=== PATIENT | female | born 1955 | race Caucasian/White ===

== ENCOUNTER 2016-12-06 19:34 | Emergency (ER) | payer OTHER ==
[2016-12-06 20:48] VITALS: TEMP 98.4; BMI 37.1
--- NOTE | 2016-12-06 20:59 | PDOC ---
History of Present Illness <Julio Jennings - Last Filed: 12/06/16 23:50> - General History Source: Patient Exam Limitations: No Limitations - History of Present Illness Initial Comments: 12/07/16 00:56 61 y/o F with a PMHx of Layo's disease, NIDDM, GERD presents to the ED with right lower extremity pain, redness, warmth and swelling for 2 weeks. Patient states that about 2.5 weeks ago she had fever, chills, abdominal pain and NVD at onset of hers ymptoms wich largely resolved aftera few days. The fever persisted for a few days and then she noticed her right lower leg to have some pain, redness, warmth and swelling. She states the symptoms resolved, but returned a few days ago. She went to urgent care who referred her to the ED. She denies blood clots in the past. She denies chest pain, SOB, cough, castro, orthopnea. PCP: Dr. Reuben Carvajal <Ashley Javier - Last Filed: 12/07/16 00:57> - General Chief Complaint: Edema Stated Complaint: PCP SENT/[facility] Time Seen by Provider: 12/06/16 20:14 Past History - Psycho/Social/Smoking Cessation Hx Smoking History: Never smoked Have you smoked in the past 12 months: No Information on smoking cessation initiated: No Hx Alcohol Use: No Drug/Substance Use Hx: No <Dalton Jenningsan - Last Filed: 12/06/16 23:50> <Ashley Javier - Last Filed: 12/07/16 00:57> - Past Medical History Allergies/Adverse Reactions: Allergies Allergy/AdvReac Type Severity Reaction Status Date / Time bacitracin Allergy Verified 12/06/16 20:46 Home Medications: Ambulatory Orders Cephalexin [Keflex] 500 mg PO QID #28 capsule 12/06/16 Review of Systems - Review of Systems Able to Perform ROS?: Yes Comments:: 12/07/16 00:57 CONSTITUTIONAL: (+) fever, chills No reported: Diaphoresis, Generalized Weakness, Malaise, Loss of Appetite HEENT: No reported: Rhinorrhea, Nasal Congestion, Throat Pain, Throat Swelling, Difficulty Swallowing, Mouth Swelling, Ear Pain, Eye Pain, Visual Changes CARDIOVASCULAR: (+) RLE swelling No reported: Chest Pain, Syncope, Palpitations, Irregular Heart Rate, Lightheadedness RESPIRATORY: No reported: Cough, Shortness of Breath, SOB with Exertion, Orthopnea, Wheezing , Stridor, Hemoptysis GASTROINTESTINAL: (+) abdominal pain, nausea, vomiting, diarrhea (resolved) No reported: Abdominal Distension, Constipation, Melena, Hematochezia GENITOURINARY: No reported: Dysuria, Frequency, Urgency, Hesitancy, Flank Pain, Genital Pain MUSCULOSKELETAL: No reported: Myalgia, Arthralgia, Joint Swelling, Back pain, Neck Pain SKIN: (+) redness, warmth and pain of RLE No reported: Rash, Itching, Pallor HEMATOLOGIC/IMMUNOLOGIC: No reported: Easy Bleeding, Easy Bruising, Lymphadenopathy, Frequent infections ENDOCRINE: No reported: Unexplained Weight Gain, Unexplained Weight Loss, Heat Intolerance , Cold Intolerance NEUROLOGIC: No reported: Headache, Focal Weakness, Paresthesias, Vertigo, Lightheadedness, Unsteady Gait, Seizure, Mental Status Changes, Incontinence PSYCHIATRIC: No reported: Anxiety, Depression <Ashley Javier - Last Filed: 12/07/16 00:57> *Physical Exam - Vital Signs Last Vital Signs Temp Pulse Resp BP Pulse Ox 98.4 F 85 18 129/70 97 12/06/16 20:46 12/06/16 20:46 12/06/16 20:46 12/06/16 20:46 12/06/16 20:46 <Julio Jennings - Last Filed: 12/06/16 23:50> - Vital Signs Last Vital Signs Temp Pulse Resp BP Pulse Ox 98.4 F 85 18 129/70 97 12/06/16 20:46 12/06/16 20:46 12/06/16 20:46 12/06/16 20:46 12/06/16 20:46 - Physical Exam Comments: 12/07/16 00:57 GENERAL: The patient is awake, alert, and fully oriented, Nontoxic - in no acute distress. HEAD: Normocephalic, atraumatic. EYES: extraocular movements intact, sclera anicteric, conjunctiva clear. ENT: Normal voice, Moist mucous membranes. NECK: Normal range of motion, supple LUNGS: Breath sounds equal, clear to auscultation bilaterally. No wheezes, no rhonchi, no rales. HEART: Regular rate and rhythm, without murmur, rub or gallop. ABDOMEN: Soft, nontender, normoactive bowel sounds. No guarding, no rebound.No CVA tenderness EXTREMITIES: erythema in LE with minimal tenderness, no warmth/streaking, neg homans sign. NEUROLOGICAL: No facial asymmetry, Normal speech PSYCH: Normal mood, normal affect. SKIN: Warm, Dry, normal turgor <Ashley Javier - Last Filed: 12/07/16 00:57> ED Treatment Course - LABORATORY CBC & Chemistry Diagram: 12/06/16 22:37 12/06/16 22:37 <MichaelaJulio - Last Filed: 12/06/16 23:50> - LABORATORY CBC & Chemistry Diagram: 12/06/16 22:37 12/06/16 22:37 - ADDITIONAL ORDERS Additional order review: Laboratory Results 12/06/16 22:37 Sodium 135 L Potassium 4.2 Chloride 98 Carbon Dioxide 26 Anion Gap 11 BUN 16 Creatinine 0.6 Creat Clearance w eGFR > 60 Random Glucose 155 H Calcium 9.6 Total Bilirubin 0.7 AST 39 H D ALT 59 D Alkaline Phosphatase 70 D Total Protein 7.9 Albumin 4.1 12/06/16 22:37 RBC 4.51 MCV 84.7 MCHC 34.2 RDW 13.6 D MPV 8.9 Neutrophils % 60.8 Lymphocytes % 23.1 Monocytes % 11.5 H Eosinophils % 3.6 Basophils % 1.0 - RADIOLOGY Radiograph Interpretation: 12/07/16 00:21 Duplex Vascular US - [address] Yonas Bird Impression: No DVT is identified involving the right leg. <Ashley Javier - Last Filed: 12/07/16 00:57> Medical Decision Making - Medical Decision Making 12/06/16 21:21 61y F hx dm2, hypothyroidism, presents with intermittent fevers a few weeks ago and last night to 102, also wit leg swelling and redness suspect cellulitis vs dvt will obtain blood work and DVT 12/06/16 23:50 labs reviewed no signs of dvt on US will give rx for keflex will have pt fu with dr. carvajal return precautions were discussed I discussed the physical exam findings, ancillary test results and final diagnoses with the patient. I answered all of the patient's questions. The patient was satisfied with the care received and felt comfortable with the discharge plan and treatment plan. The patient will call their primary care physician within 24 hours to arrange follow-up and will return to the Emergency Department with any new, persistent or worsening symptoms. A portion of this note was documented by scribe services under my direction. I have reviewed the details of the note, within reason, and agree with the documentation with the following case summary and management plan written by me 12/06/16 23:58 <Julio Jennings - Last Filed: 12/06/16 23:50> *DC/Admit/Observation/Transfer - Discharge Dispostion Admit: No <Julio Jennings - Last Filed: 12/06/16 23:50> - Attestations Scribe Attestion: 12/07/16 00:23 Documentation prepared by Ashley Javier, acting as medical imaging technician for Julio Jennings MD. <Ashley Javier - Last Filed: 12/07/16 00:57> Diagnosis at time of Disposition: Cellulitis Qualifiers: Site of cellulitis: extremity Site of cellulitis of extremity: lower extremity Laterality: left Qualified Code(s): L03.116 - Cellulitis of left lower limb - Prescriptions Prescriptions: Cephalexin [Keflex] 500 mg PO QID #28 capsule - Referrals Referrals: Reuben Carvajal MD [Primary Care Provider] - - Patient Instructions Printed Discharge Instructions: DI for Cellulitis -- Adult Additional Instructions: Return to the emergency department immediately with ANY new, persistent or worsening symptoms including worsening pain, fevers/chills, shortnes of breath or any other concerns. You MUST call and follow up with Dr. Carvajal in 3-4 days for further evaluation of your symptoms. Results were discussed with you. Please make sure your doctor reviews the results of your emergency evaluation.
[2016-12-06 22:52] LABS: EOSINOPHIL 3.6 % (0-4.5); MCH 28.9 pg (25.7-33.7); MCHC 34.2 g/dl (32.0-36.0); MEAN CELL VOLUME 84.7 fl (80-96); MEAN PLT VOLUME 8.9 fl (7.5-11.1); NEUTROPHILS 60.8 % (42.8-82.8); PLATELET COUNT 191 K/MM3 (134-434); RDW 13.6 % (11.6-15.6); WHITE BLOOD COUNT 6.4 K/mm3 (4.0-10.0)
[2016-12-06 23:24] LABS: ALBUMIN 4.1 g/dl (3.4-5.0); ANION GAP 11 (8-16); CALCIUM 9.6 mg/dL (8.5-10.1); CO2 26 mmol/L (21-32); GLUCOSE,RANDOM 155 mg/dL (74-106)
[2016-12-06 23:29] LABS: ALK PHOS 70 U/L (45-117); BILIRUBIN,TOTAL 0.7 mg/dL (0.2-1.0); CREATININE 0.6 mg/dL (0.55-1.02); SGOT/AST 39 U/L (15-37); SGPT/ALT 59 U/L (12-78); TOT PROT 7.9 g/dl (6.4-8.2)
[2016-12-06] MEDS ORDERED: CEFTRIAXONE 1 GM in DEXTROSE 5%-WATER - 50 ML IVPB ONE (23:58)
[2016-12-07] MEDS ORDERED: CEFTRIAXONE 50 ML ONE (00:33)
[2016-12-07 01:05] VITALS: BP 127/60; PULSE 68
== END 2016-12-07 01:05 | disposition home or self-care (01) ==
LOC: JER 19:34
DX: L03.115 Cellulitis of right lower limb (principal); E11.9 Type 2 diabetes mellitus without complications; Z79.84 Long term (current) use of oral hypoglycemic drugs; E03.9 Hypothyroidism, unspecified; K21.9 Gastro-esophageal reflux disease without esophagitis
CPT/HCPCS: 36415; 80053; 85025; 93971-TC; 99282-25

== ENCOUNTER 2016-12-27 12:33 | Inpatient (IN) | payer OTHER ==
--- NOTE | 2016-12-27 13:08 | PDOC ---
History of Present Illness - General Chief Complaint: Wound Stated Complaint: WOUND INFECTION Time Seen by Provider: 12/27/16 13:08 - History of Present Illness Initial Comments: 61 y/o F with a PMHx of Layo's disease, NIDDM, GERD presents to the ED with fevers, nausea, vomiting, right lower extremity pain, redness, warmth and swelling for one day. She noticed this redness and swelling yesterday shortly after she was feeling warm and experienced an episode of nausea and vomiting. She had a very similar presentation one month prior and was discharged with good resolution of her symptoms on 500 Keflex QID x 7 days. 12/27/16 13:55 Past History - Past Medical History Allergies/Adverse Reactions: Allergies Allergy/AdvReac Type Severity Reaction Status Date / Time bacitracin Allergy Verified 12/27/16 12:45 lactose AdvReac Verified 12/27/16 12:51 Home Medications: Ambulatory Orders Atenolol [Tenormin -] 25 mg PO DAILY 12/27/16 Famotidine [Pepcid -] 40 mg PO DAILY 12/27/16 Levothyroxine [Synthroid -] 150 mcg PO DAILY 12/27/16 Metformin HCl [Metformin HCl ER] 1,000 mg PO BID 12/27/16 Diabetes: Yes GI Disorders: Yes (GERD) Thyroid Disease: No (Hypothyroid) Other medical history: Hashimotothriditis - Immunization History Immunization Up to Date: Yes - Suicide/Smoking/Psychosocial Hx Smoking History: Never smoked Have you smoked in the past 12 months: No Information on smoking cessation initiated: No Hx Alcohol Use: No Drug/Substance Use Hx: No Substance Use Type: None Review of Systems - Review of Systems Constitutional: Yes: Chills, Fever, Loss of Appetite HEENTM: No: Blurred Vision, Double Vision Respiratory: No: Cough, SOB with Exertion, SOB at Rest Cardiac (ROS): No: Chest Pain, Lightheadedness ABD/GI: Yes: Nausea, Vomiting. No: Constipated, Diarrhea : No: Dysuria, Discharge Integumentary: Yes: Change in Color, Erythema, Lesions Neurological: No: Headache *Physical Exam - Vital Signs Last Vital Signs Temp Pulse Resp BP Pulse Ox 100.8 F H 97 H 15 150/75 99 12/27/16 12:47 12/27/16 12:47 12/27/16 12:47 12/27/16 12:47 12/27/16 12:47 - Physical Exam General Appearance: Yes: Nourished, Appropriately Dressed. No: Apparent Distress HEENT: positive: EOMI, AMNA, Normal ENT Inspection, Normal Voice Respiratory/Chest: positive: Lungs Clear, Normal Breath Sounds. negative: Chest Tender, Respiratory Distress, Accessory Muscle Use Cardiovascular: positive: Regular Rhythm, Regular Rate, S1, S2, Edema. negative : JVD, Murmur Gastrointestinal/Abdominal: positive: Normal Bowel Sounds, Flat, Soft. negative : Tender Extremity: positive: Normal Range of Motion, Erythema, Inflammation (RLE edema and inflammation with erythema from the calcaneous to 3 cms below thte tibial plateau.). negative: Normal Inspection Integumentary: positive: Dry, Warm, Erythema. negative: Normal Color (Per above ) Neurologic: positive: Fully Oriented, Alert, Normal Mood/Affect, Normal Response ED Treatment Course - LABORATORY CBC & Chemistry Diagram: 12/27/16 14:00 12/27/16 14:00 Medical Decision Making - Medical Decision Making 61 year old female with erythema and swelling of her right lower extremity concerning for cellulitis. Will get CBC, CMP, lactate, CXR, and give 500 NS. 12/27/16 14:17 Labs WNL. Called Braulio x3. 12/27/16 17:00 Braulio called back and will admit to hospitalist. 12/27/16 18:[address] Carlson and will admit the patient to Obs for cellulitis. *DC/Admit/Observation/Transfer Diagnosis at time of Disposition: Cellulitis - Discharge Dispostion Disposition: HOME Condition at time of disposition: Improved Admit: Yes - Referrals Referrals: Reuben Carvajal MD [Primary Care Provider] -
--- NOTE | 2016-12-27 13:19 | PDOC ---
Attending Attestation - Resident Resident Name: Ernesto Mendoza - HPI HPI: 12/31/16 00:44 Pt presents to the ED complaining of R lower extremity pain and swelling, and fevers. Prior history of cellulitis treated with outpatient antibiotics. Patinet is diabetic. - Physicial Exam PE: 12/31/16 00:45 Agree with resident's exam. RLE is erythematous and tender from the foot to the knee. - Medical Decision Making 12/31/16 00:46 Patient presents to the ED with apparent RLE cellulitis. History of DM. Given her fever, elevated WBC count and immunocompromise, I feel that the patient needs to be admitted for IV antibiotics. Will start antibiotics and admit to medicine.
[2016-12-27] MEDS ORDERED: SODIUM CHLORIDE 0.9% 1000 ML INFUS.BAG IV ONE (13:36)
[2016-12-27 14:15] LABS: BASOPHIL 0.3 % (0-2.0); EOSINOPHIL 0.2 % (0-4.5); MCH 28.4 pg (25.7-33.7); MCHC 33.6 g/dl (32.0-36.0); MEAN CELL VOLUME 84.4 fl (80-96); MEAN PLT VOLUME 8.7 fl (7.5-11.1); PLATELET COUNT 145 K/MM3 (134-434); WHITE BLOOD COUNT 5.8 K/mm3 (4.0-10.0)
[2016-12-27 14:32] LABS: ALBUMIN 3.7 g/dl (3.4-5.0); ANION GAP 11 (8-16); BILIRUBIN,TOTAL 0.9 mg/dL (0.2-1.0); CALCIUM 8.8 mg/dL (8.5-10.1); CO2 26 mmol/L (21-32); CREATININE 0.7 mg/dL (0.55-1.02); GLUCOSE,RANDOM 172 mg/dL (74-106); SGOT/AST 21 U/L (15-37); SGPT/ALT 35 U/L (12-78)
[2016-12-27 14:33] LABS: ALK PHOS 58 U/L (45-117); TOT PROT 7.1 g/dl (6.4-8.2)
[2016-12-27] MEDS ORDERED: AMPICILLIN NA/SULBACTAM NA 3 GM in SODIUM CHLORIDE 100 ML IVPB ONE (16:03)
--- NOTE | 2016-12-27 19:42 | HP ---
Admitting History and Physical - Primary Care Physician PCP: Talia Carlson - Admission History of Present Illness: 61 y/o F with a PMHx of Layo's disease, NIDDM, GERD presents to the ED with fevers, nausea, vomiting, right lower extremity pain, redness, warmth and swelling for one day. She noticed this redness and swelling yesterday shortly after she was feeling warm and experienced an episode of nausea and vomiting. had cellulitis recently and dc home on po keflex - Past Medical History Gastrointestinal: Yes: GERD Endocrine: Yes: Diabetes Mellitus, Other (hashimotos) - Smoking History Smoking history: Never smoked Have you smoked in the past 12 months: No - Alcohol/Substance Use Hx Alcohol Use: No Home Medications - Allergies Allergies/Adverse Reactions: Allergies Allergy/AdvReac Type Severity Reaction Status Date / Time bacitracin Allergy Verified 12/27/16 12:45 lactose AdvReac Verified 12/27/16 12:51 - Home Medications Home Medications: Ambulatory Orders Atenolol [Tenormin -] 25 mg PO DAILY 12/27/16 Famotidine [Pepcid -] 40 mg PO DAILY 12/27/16 Levothyroxine [Synthroid -] 150 mcg PO DAILY 12/27/16 Metformin HCl [Metformin HCl ER] 1,000 mg PO BID 12/27/16 Amox-Tr/K Cl [Augmentin 875-125mg Tablet -] 1 tab PO BID@0800,1730 #14 tablet Physical Examination Vital Signs: Vital Signs Temperature 100.8 F H 12/27/16 12:47 Pulse Rate 91 H 12/27/16 18:55 Respiratory Rate 18 12/27/16 18:55 Blood Pressure 142/70 12/27/16 18:55 O2 Sat by Pulse Oximetry (%) 98 12/27/16 18:55 Constitutional: Yes: No Distress HENT: Yes: Atraumatic Neck: Yes: Supple Cardiovascular: Yes: Regular Rate and Rhythm Respiratory: Yes: CTA Bilaterally Gastrointestinal: Yes: Normal Bowel Sounds Extremities: Yes: Other (cellulitis) Problem List - Problems (1) Cellulitis Assessment/Plan: iv abx bcx id consult Code(s): L03.90 - CELLULITIS, UNSPECIFIED (2) GERD (gastroesophageal reflux disease) Assessment/Plan: stable Code(s): K21.9 - GASTRO-ESOPHAGEAL REFLUX DISEASE WITHOUT ESOPHAGITIS (3) Hypothyroid Assessment/Plan: on meds stable Code(s): E03.9 - HYPOTHYROIDISM, UNSPECIFIED (4) Diabetes Assessment/Plan: on metformin check bgms Code(s): E11.9 - TYPE 2 DIABETES MELLITUS WITHOUT COMPLICATIONS Assessment/Plan Laboratory Tests 12/27/16 12/27/16 12/27/16 14:00 14:00 14:00 WBC 5.8 RBC 4.30 Hgb 12.2 Hct 36.3 MCV 84.4 MCH 28.4 MCHC 33.6 RDW 14.0 Plt Count 145 D MPV 8.7 Neutrophils % 75.0 D Lymphocytes % 15.6 D Monocytes % 8.9 Eosinophils % 0.2 D Basophils % 0.3 Sodium 135 L Potassium 3.5 Chloride 98 Carbon Dioxide 26 Anion Gap 11 BUN 10 D Creatinine 0.7 Creat Clearance w eGFR > 60 Random Glucose 172 H Lactic Acid 1.3 Calcium 8.8 Total Bilirubin 0.9 D AST 21 D ALT 35 D Alkaline Phosphatase 58 C-Reactive Protein Total Protein 7.1 Albumin 3.7 12/27/16 16:10 WBC RBC Hgb Hct MCV MCH MCHC RDW Plt Count MPV Neutrophils % Lymphocytes % Monocytes % Eosinophils % Basophils % Sodium Potassium Chloride Carbon Dioxide Anion Gap BUN Creatinine Creat Clearance w eGFR Random Glucose Lactic Acid Calcium Total Bilirubin AST ALT Alkaline Phosphatase C-Reactive Protein 11.1 H Total Protein Albumin Active Medications Generic Name Dose Route Start Last Admin Trade Name Freq PRN Reason Stop Dose Admin Acetaminophen 650 mg 12/27/16 19:46 Tylenol - PO Q6H PRN FEVER OR PAIN Amoxicillin/Clavulanate Potassium 1 tab 01/01/17 17:30 01/03/17 08:36 Augmentin - 875mg Tablet PO 1 tab BID@0800,1730 ZOEY Administration Atenolol 25 mg 12/28/16 10:00 01/03/17 10:49 Tenormin - PO 25 mg DAILY ZOEY Administration Levothyroxine Sodium 150 mcg 12/28/16 07:00 01/03/17 06:20 Synthroid - PO 150 mcg ACBK ZOEY Administration Metformin HCl 1,000 mg 12/29/16 07:00 01/03/17 06:20 Glucophage Xr - PO 1,000 mg BIDAC ZOEY Administration
[2016-12-27] MEDS ORDERED: ACETAMINOPHEN 325 MG TABLET (FP) PO PRN (19:46)
[2016-12-27 20:28] VITALS: BMI 35.2
[2016-12-27] MEDS: CEFTRIAXONE 1 GM in DEXTROSE 5%-WATER - 50 ML IVPB SCH (20:55)
[2016-12-27] MEDS: HEPARIN NA (PORCINE) 5,000 UNITS/ML 1ML VIAL SQ SCH (21:34)
[2016-12-27] MEDS ORDERED: PATIENT'S OWN MEDICATION (NON-FORMULARY) (Metformin Hcl [Metformin Hcl Er] 1,000 MG) PO SCH (22:00)
[2016-12-28] MEDS: LEVOTHYROXINE NA 150 MCG TABLET PO SCH (06:05)
[2016-12-28 08:19] LABS: MCH 28.4 pg (25.7-33.7); MCHC 33.4 g/dl (32.0-36.0); MEAN CELL VOLUME 85.1 fl (80-96)
[2016-12-28 08:36] LABS: BASOPHIL 0.5 % (0-2.0); EOSINOPHIL 2.8 % (0-4.5); MEAN PLT VOLUME 9.1 fl (7.5-11.1); PLATELET COUNT 152 K/MM3 (134-434); RDW 14.2 % (11.6-15.6); WHITE BLOOD COUNT 4.9 K/mm3 (4.0-10.0)
[2016-12-28 08:50] LABS: ALBUMIN 3.7 g/dl (3.4-5.0); ALK PHOS 64 U/L (45-117); ANION GAP 9 (8-16); BILIRUBIN,TOTAL 0.8 mg/dL (0.2-1.0); CALCIUM 8.7 mg/dL (8.5-10.1); CO2 29 mmol/L (21-32); CREATININE 0.7 mg/dL (0.55-1.02); GLUCOSE,RANDOM 135 mg/dL (74-106); SGOT/AST 25 U/L (15-37); SGPT/ALT 37 U/L (12-78); TOT PROT 7.2 g/dl (6.4-8.2)
--- NOTE | 2016-12-28 09:38 | EKG ---
Test Reason : Blood Pressure : / mmHG Vent. Rate : 093 BPM Atrial Rate : 093 BPM P-R Int : 160 ms QRS Dur : 082 ms QT Int : 366 ms P-R-T Axes : 027 -12 -06 degrees QTc Int : 455 ms NORMAL SINUS RHYTHM NONSPECIFIC ST AND T WAVE ABNORMALITY WHEN COMPARED WITH ECG OF 16-NOV-2012 12:41, T WAVE VARIATION Confirmed by MELI POWELL MD ([id number]) on 12/28/2016 9:37:59 AM Referred By: Confirmed By:MELI POWELL MD
[2016-12-28] MEDS ORDERED: CEFTRIAXONE 1 GM in DEXTROSE 5%-WATER - 50 ML IVPB SCH (10:00)
[2016-12-28] MEDS ORDERED: PT OWN MED DRAWER 7, Y5N ONE ×5 (11:01→21:33)
[2016-12-28] MEDS ORDERED: cefTRIAXone SODIUM 1 GM VIAL ONE (11:02)
[2016-12-28] MEDS ORDERED: DEXTROSE 5%-WATER - 50 ML IVPB ONE (11:02)
[2016-12-28] MEDS: HEPARIN NA (PORCINE) 5,000 UNITS/ML 1ML VIAL SQ SCH ×2 (11:04→22:00)
[2016-12-28] MEDS: ATENOLOL 25 MG TABLET (FP) PO SCH (11:04)
[2016-12-28] MEDS: CEFTRIAXONE 1 GM in DEXTROSE 5%-WATER - 50 ML IVPB SCH (11:06)
--- NOTE | 2016-12-28 13:18 | PN ---
Progress Note, Physician - Current Medication List Current Medications: Active Medications Acetaminophen (Tylenol -) 650 mg PO Q6H PRN PRN Reason: FEVER OR PAIN Atenolol (Tenormin -) 25 mg PO DAILY [facility] Last Admin: 12/28/16 11:04 Dose: 25 mg Heparin Sodium (Porcine) (Heparin -) 5,000 unit SQ BID [facility] Last Admin: 12/28/16 11:04 Dose: 5,000 unit Ceftriaxone Sodium 1 gm/ (Dextrose) 50 mls @ 100 mls/hr IVPB DAILY [facility] Last Admin: 12/28/16 11:06 Dose: 100 mls/hr Levothyroxine Sodium (Synthroid -) 150 mcg PO ACBK [facility] Last Admin: 12/28/16 06:05 Dose: 150 mcg Metformin HCl (Glucophage Xr -) 1,000 mg PO BID [facility] Last Admin: 12/28/16 11:05 Dose: 1,000 mg - Objective Vital Signs: Vital Signs Temperature 98.2 F 12/28/16 09:36 Pulse Rate 99 H 12/28/16 09:36 Respiratory Rate 16 12/28/16 09:36 Blood Pressure 126/63 12/28/16 09:36 O2 Sat by Pulse Oximetry (%) 98 12/27/16 23:11 Constitutional: Yes: No Distress HENT: Yes: Atraumatic Neck: Yes: Supple Cardiovascular: Yes: Regular Rate and Rhythm Respiratory: Yes: CTA Bilaterally Gastrointestinal: Yes: Normal Bowel Sounds Extremities: Yes: Other (cellulitis rlex) Neurological: Yes: Alert, Oriented Labs: CBC, BMP 12/28/16 06:45 12/28/16 06:44 Problem List - Problems (1) Cellulitis Assessment/Plan: on iv abx id consult Code(s): L03.90 - CELLULITIS, UNSPECIFIED (2) GERD (gastroesophageal reflux disease) Code(s): K21.9 - GASTRO-ESOPHAGEAL REFLUX DISEASE WITHOUT ESOPHAGITIS
--- NOTE | 2016-12-28 14:42 | CON.ID ---
Consult Consult Specialty:: infectious disease Referred by:: luis manuel Reason for Consultation:: cellulitis rt leg - History of Present Illness Chief Complaint: swelling and redness of the rt leg History of Present Illness: 61 y/o F with a PMHx of Layo's disease, NIDDM, GERD admitted with fevers, nausea, vomiting, right lower extremity pain, redness, warmth and swelling for one day. She noticed this redness and swelling yesterday shortly after she was feeling warm and experienced an episode of nausea and vomiting. She had a very similar presentation one month prior and was discharged with good resolution of her symptoms on 500 Keflex QID x 7 days. patient mentions that the swelling has come on suddenly - History Source History Provided By: Patient Limitations to Obtaining History: No Limitations - Past Medical History Gastrointestinal: Yes: GERD ...LMP: 01/06/07 Endocrine: Yes: Diabetes Mellitus, Other (hashimotos) - Alcohol/Substance Use Hx Alcohol Use: No - Smoking History Smoking history: Never smoked Have you smoked in the past 12 months: No Home Medications - Allergies Allergies/Adverse Reactions: Allergies Allergy/AdvReac Type Severity Reaction Status Date / Time bacitracin Allergy Verified 12/27/16 12:45 lactose AdvReac Verified 12/27/16 12:51 - Home Medications Home Medications: Ambulatory Orders Atenolol [Tenormin -] 25 mg PO DAILY 12/27/16 Famotidine [Pepcid -] 40 mg PO DAILY 12/27/16 Levothyroxine [Synthroid -] 150 mcg PO DAILY 12/27/16 Metformin HCl [Metformin HCl ER] 1,000 mg PO BID 12/27/16 Review of Systems - Review of Systems Constitutional: reports: Fever Eyes: reports: No Symptoms HENT: reports: No Symptoms Neck: reports: No Symptoms Cardiovascular: reports: No Symptoms Respiratory: reports: No Symptoms Gastrointestinal: reports: No Symptoms Genitourinary: reports: No Symptoms Musculoskeletal: reports: Muscle Pain, Other Integumentary: reports: Change in Color, Erythema Neurological: reports: No Symptoms Endocrine: reports: No Symptoms Hematology/Lymphatic: reports: No Symptoms Psychiatric: reports: No Symptoms Physical Exam Vital Signs: Vital Signs Temperature 98.8 F 12/28/16 14:30 Pulse Rate 75 12/28/16 14:30 Respiratory Rate 16 12/28/16 09:36 Blood Pressure 121/72 12/28/16 14:30 O2 Sat by Pulse Oximetry (%) 98 12/27/16 23:11 Constitutional: Yes: No Distress, Calm, Obese Eyes: Yes: Conjunctiva Clear HENT: Yes: Atraumatic Neck: Yes: Supple, Trachea Midline Cardiovascular: Yes: Regular Rate and Rhythm Respiratory: Yes: Regular, CTA Bilaterally Gastrointestinal: Yes: Normal Bowel Sounds, Soft Musculoskeletal: Yes: Other Extremities: Yes: Erythema Edema: RLE: 1+ Integumentary: Yes: Erythema, Other Neurological: Yes: Alert, Oriented Psychiatric: Yes: Alert Labs: CBC, BMP 12/28/16 06:45 12/28/16 06:44 Imaging - Results Chest X-ray: Report Reviewed, Image Reviewed X-ray: Report Reviewed, Image Reviewed Assessment/Plan Problem List - Problems (1) Cellulitis Code(s): L03.90 - CELLULITIS, UNSPECIFIED (2) GERD (gastroesophageal reflux disease) Code(s): K21.9 - GASTRO-ESOPHAGEAL REFLUX DISEASE WITHOUT ESOPHAGITIS 3 obesity 4 swelling of the rt leg plan elevation of the leg iv abx rest as per primary team
[2016-12-28] MEDS ORDERED: AMPICILLIN NA/SULBACTAM NA 3 GM in SODIUM CHLORIDE 100 ML IVPB SCH (14:45)
[2016-12-28] MEDS: AMPICILLIN NA/SULBACTAM NA 3 GM in SODIUM CHLORIDE 100 ML IVPB SCH ×2 (16:39→18:15)
[2016-12-29] MEDS ORDERED: PT OWN MED DRAWER 7, Y5N ONE ×4 (01:40→17:07)
[2016-12-29] MEDS: AMPICILLIN NA/SULBACTAM NA 3 GM in SODIUM CHLORIDE 100 ML IVPB SCH ×3 (01:44→17:10)
[2016-12-29] MEDS: LEVOTHYROXINE NA 150 MCG TABLET PO SCH (06:41)
[2016-12-29] MEDS ORDERED: cefTRIAXone SODIUM 1 GM VIAL ONE (10:00)
[2016-12-29] MEDS ORDERED: DEXTROSE 5%-WATER - 50 ML IVPB ONE (10:01)
[2016-12-29] MEDS: ATENOLOL 25 MG TABLET (FP) PO SCH (10:04)
[2016-12-29] MEDS: HEPARIN NA (PORCINE) 5,000 UNITS/ML 1ML VIAL SQ SCH ×2 (10:04→21:15)
[2016-12-29] MEDS: CEFTRIAXONE 1 GM in DEXTROSE 5%-WATER - 50 ML IVPB SCH (11:06)
--- NOTE | 2016-12-29 16:34 | PN ---
Progress Note, Physician History of Present Illness: patient leg still red improving - Current Medication List Current Medications: Active Medications Acetaminophen (Tylenol -) 650 mg PO Q6H PRN PRN Reason: FEVER OR PAIN Atenolol (Tenormin -) 25 mg PO DAILY [facility] Last Admin: 12/29/16 10:04 Dose: 25 mg Heparin Sodium (Porcine) (Heparin -) 5,000 unit SQ BID [facility] Last Admin: 12/29/16 10:04 Dose: 5,000 unit Ceftriaxone Sodium 1 gm/ (Dextrose) 50 mls @ 100 mls/hr IVPB DAILY [facility] Last Admin: 12/29/16 11:06 Dose: 100 mls/hr Ampicillin Sodium/Sulbactam (Sodium 3 gm/ Sodium Chloride) 100 mls @ 200 mls/ hr IVPB Q8H-IV [facility] Last Admin: 12/29/16 10:02 Dose: 200 mls/hr Levothyroxine Sodium (Synthroid -) 150 mcg PO ACBK [facility] Last Admin: 12/29/16 06:41 Dose: 150 mcg Metformin HCl (Glucophage Xr -) 1,000 mg PO BIDAC [facility] Last Admin: 12/29/16 06:40 Dose: 1,000 mg - Objective Vital Signs: Vital Signs Temperature 98.3 F 12/29/16 14:28 Pulse Rate 73 12/29/16 14:28 Respiratory Rate 18 12/29/16 14:28 Blood Pressure 133/74 12/29/16 14:28 O2 Sat by Pulse Oximetry (%) 97 12/29/16 09:00 Constitutional: Yes: No Distress, Calm, Obese Neck: Yes: Supple, Trachea Midline Cardiovascular: Yes: Regular Rate and Rhythm Respiratory: Yes: Regular, CTA Bilaterally Gastrointestinal: Yes: Normal Bowel Sounds, Soft Musculoskeletal: Yes: Other Extremities: Yes: Erythema, Other Edema: LLE: 2+, RLE: 1+ Integumentary: Yes: Erythema Neurological: Yes: Alert, Oriented Psychiatric: Yes: Alert, Oriented Labs: CBC, BMP 12/28/16 06:45 12/28/16 06:44 Assessment/Plan Problem List - Problems (1) Cellulitis Code(s): L03.90 - CELLULITIS, UNSPECIFIED (2) GERD (gastroesophageal reflux disease) Code(s): K21.9 - GASTRO-ESOPHAGEAL REFLUX DISEASE WITHOUT ESOPHAGITIS 3 obesity 4 swelling of the rt leg plan elevation of the leg iv abx rest as per primary team
--- NOTE | 2016-12-29 18:08 | PN ---
Progress Note, Physician History of Present Illness: feeling good - Current Medication List Current Medications: Active Medications Acetaminophen (Tylenol -) 650 mg PO Q6H PRN PRN Reason: FEVER OR PAIN Atenolol (Tenormin -) 25 mg PO DAILY [facility] Last Admin: 12/29/16 10:04 Dose: 25 mg Heparin Sodium (Porcine) (Heparin -) 5,000 unit SQ BID [facility] Last Admin: 12/29/16 10:04 Dose: 5,000 unit Ceftriaxone Sodium 1 gm/ (Dextrose) 50 mls @ 100 mls/hr IVPB DAILY [facility] Last Admin: 12/29/16 11:06 Dose: 100 mls/hr Ampicillin Sodium/Sulbactam (Sodium 3 gm/ Sodium Chloride) 100 mls @ 200 mls/ hr IVPB Q8H-IV [facility] Last Admin: 12/29/16 17:10 Dose: 200 mls/hr Levothyroxine Sodium (Synthroid -) 150 mcg PO ACBK [facility] Last Admin: 12/29/16 06:41 Dose: 150 mcg Metformin HCl (Glucophage Xr -) 1,000 mg PO BIDAC [facility] Last Admin: 12/29/16 17:50 Dose: 1,000 mg - Objective Vital Signs: Vital Signs Temperature 98.3 F 12/29/16 14:28 Pulse Rate 73 12/29/16 14:28 Respiratory Rate 18 12/29/16 14:28 Blood Pressure 133/74 12/29/16 14:28 O2 Sat by Pulse Oximetry (%) 97 12/29/16 09:00 Constitutional: Yes: No Distress HENT: Yes: Atraumatic Neck: Yes: Supple Cardiovascular: Yes: Regular Rate and Rhythm Respiratory: Yes: CTA Bilaterally Gastrointestinal: Yes: Normal Bowel Sounds Extremities: Yes: Other (R phyllis warm and red) Edema: RLE: 1+ Neurological: Yes: Alert, Oriented Labs: CBC, BMP 12/28/16 06:45 12/28/16 06:44 Problem List - Problems (1) Cellulitis Assessment/Plan: on iv abx elevate leg id consult Code(s): L03.90 - CELLULITIS, UNSPECIFIED (2) GERD (gastroesophageal reflux disease) Code(s): K21.9 - GASTRO-ESOPHAGEAL REFLUX DISEASE WITHOUT ESOPHAGITIS (3) Hypothyroid Assessment/Plan: on meds stable Code(s): E03.9 - HYPOTHYROIDISM, UNSPECIFIED
[2016-12-30] MEDS: AMPICILLIN NA/SULBACTAM NA 3 GM in SODIUM CHLORIDE 100 ML IVPB SCH ×3 (02:01→17:37)
[2016-12-30] MEDS: LEVOTHYROXINE NA 150 MCG TABLET PO SCH (06:47)
[2016-12-30] MEDS ORDERED: PT OWN MED DRAWER 7, Y5N ONE ×3 (10:42→17:03)
[2016-12-30] MEDS ORDERED: DEXTROSE 5%-WATER - 50 ML IVPB ONE (10:42)
[2016-12-30] MEDS ORDERED: cefTRIAXone SODIUM 1 GM VIAL ONE (10:42)
[2016-12-30] MEDS: HEPARIN NA (PORCINE) 5,000 UNITS/ML 1ML VIAL SQ SCH ×2 (10:43→21:34)
[2016-12-30] MEDS: ATENOLOL 25 MG TABLET (FP) PO SCH (10:44)
[2016-12-30] MEDS: CEFTRIAXONE 1 GM in DEXTROSE 5%-WATER - 50 ML IVPB SCH (10:44)
--- NOTE | 2016-12-30 14:37 | PN ---
Progress Note, Physician History of Present Illness: improving still red and swollen - Current Medication List Current Medications: Active Medications Acetaminophen (Tylenol -) 650 mg PO Q6H PRN PRN Reason: FEVER OR PAIN Atenolol (Tenormin -) 25 mg PO DAILY [facility] Last Admin: 12/30/16 10:44 Dose: 25 mg Heparin Sodium (Porcine) (Heparin -) 5,000 unit SQ BID [facility] Last Admin: 12/30/16 10:43 Dose: 5,000 unit Ceftriaxone Sodium 1 gm/ (Dextrose) 50 mls @ 100 mls/hr IVPB DAILY [facility] Last Admin: 12/30/16 10:44 Dose: 100 mls/hr Ampicillin Sodium/Sulbactam (Sodium 3 gm/ Sodium Chloride) 100 mls @ 200 mls/ hr IVPB Q8H-IV [facility] Last Admin: 12/30/16 10:42 Dose: 200 mls/hr Levothyroxine Sodium (Synthroid -) 150 mcg PO ACBK [facility] Last Admin: 12/30/16 06:47 Dose: 150 mcg Metformin HCl (Glucophage Xr -) 1,000 mg PO BIDAC [facility] Last Admin: 12/30/16 06:47 Dose: 1,000 mg - Objective Vital Signs: Vital Signs Temperature 98.1 F 12/30/16 09:00 Pulse Rate 79 12/30/16 09:00 Respiratory Rate 16 12/30/16 09:00 Blood Pressure 133/73 12/30/16 09:00 O2 Sat by Pulse Oximetry (%) 97 12/29/16 21:00 Constitutional: Yes: No Distress, Calm Cardiovascular: Yes: Regular Rate and Rhythm Respiratory: Yes: Regular, CTA Bilaterally Gastrointestinal: Yes: Normal Bowel Sounds, Soft Musculoskeletal: Yes: WNL Extremities: Yes: Erythema, Other (swelling) Integumentary: Yes: Erythema Neurological: Yes: Alert, Oriented Psychiatric: Yes: Alert, Oriented Labs: CBC, BMP 12/28/16 06:45 12/28/16 06:44 Assessment/Plan Problem List - Problems (1) Cellulitis Code(s): L03.90 - CELLULITIS, UNSPECIFIED (2) GERD (gastroesophageal reflux disease) Code(s): K21.9 - GASTRO-ESOPHAGEAL REFLUX DISEASE WITHOUT ESOPHAGITIS 3 obesity 4 swelling of the rt leg plan elevation of the leg iv abx rest as per primary team
--- NOTE | 2016-12-30 17:59 | PN ---
Progress Note, Physician History of Present Illness: feeling good - Current Medication List Current Medications: Active Medications Acetaminophen (Tylenol -) 650 mg PO Q6H PRN PRN Reason: FEVER OR PAIN Atenolol (Tenormin -) 25 mg PO DAILY [facility] Last Admin: 12/30/16 10:44 Dose: 25 mg Heparin Sodium (Porcine) (Heparin -) 5,000 unit SQ BID [facility] Last Admin: 12/30/16 10:43 Dose: 5,000 unit Ampicillin Sodium/Sulbactam (Sodium 3 gm/ Sodium Chloride) 100 mls @ 200 mls/ hr IVPB Q8H-IV [facility] Last Admin: 12/30/16 17:37 Dose: 200 mls/hr Levothyroxine Sodium (Synthroid -) 150 mcg PO ACBK [facility] Last Admin: 12/30/16 06:47 Dose: 150 mcg Metformin HCl (Glucophage Xr -) 1,000 mg PO BIDAC [facility] Last Admin: 12/30/16 17:36 Dose: 1,000 mg - Objective Vital Signs: Vital Signs Temperature 98.1 F 12/30/16 14:14 Pulse Rate 70 12/30/16 14:14 Respiratory Rate 22 12/30/16 14:14 Blood Pressure 130/72 12/30/16 14:14 O2 Sat by Pulse Oximetry (%) 97 12/30/16 09:00 Constitutional: Yes: No Distress HENT: Yes: Atraumatic Neck: Yes: Supple Cardiovascular: Yes: Regular Rate and Rhythm Respiratory: Yes: CTA Bilaterally Extremities: Yes: Other (rlex still warm and red) Neurological: Yes: Alert, Oriented Labs: CBC, BMP 12/28/16 06:45 12/28/16 06:44 Problem List - Problems (1) Cellulitis Assessment/Plan: on iv abx elevate leg id consult Code(s): L03.90 - CELLULITIS, UNSPECIFIED (2) GERD (gastroesophageal reflux disease) Code(s): K21.9 - GASTRO-ESOPHAGEAL REFLUX DISEASE WITHOUT ESOPHAGITIS (3) Hypothyroid Assessment/Plan: on meds stable Code(s): E03.9 - HYPOTHYROIDISM, UNSPECIFIED
[2016-12-31] MEDS: AMPICILLIN NA/SULBACTAM NA 3 GM in SODIUM CHLORIDE 100 ML IVPB SCH ×3 (01:34→17:44)
[2016-12-31] MEDS: LEVOTHYROXINE NA 150 MCG TABLET PO SCH (06:22)
[2016-12-31] MEDS ORDERED: PT OWN MED DRAWER 7, Y5N ONE ×2 (09:20→17:38)
[2016-12-31] MEDS: HEPARIN NA (PORCINE) 5,000 UNITS/ML 1ML VIAL SQ SCH ×2 (10:34→21:35)
[2016-12-31] MEDS: ATENOLOL 25 MG TABLET (FP) PO SCH (10:34)
--- NOTE | 2016-12-31 16:01 | PN ---
Progress Note, Physician History of Present Illness: doing much better no issues erythema resolving swelling much better - Current Medication List Current Medications: Active Medications Acetaminophen (Tylenol -) 650 mg PO Q6H PRN PRN Reason: FEVER OR PAIN Atenolol (Tenormin -) 25 mg PO DAILY [facility] Last Admin: 12/31/16 10:34 Dose: 25 mg Heparin Sodium (Porcine) (Heparin -) 5,000 unit SQ BID [facility] Last Admin: 12/31/16 10:34 Dose: 5,000 unit Ampicillin Sodium/Sulbactam (Sodium 3 gm/ Sodium Chloride) 100 mls @ 200 mls/ hr IVPB Q8H-IV [facility] Last Admin: 12/31/16 10:34 Dose: 200 mls/hr Levothyroxine Sodium (Synthroid -) 150 mcg PO ACBK [facility] Last Admin: 12/31/16 06:22 Dose: 150 mcg Metformin HCl (Glucophage Xr -) 1,000 mg PO BIDAC [facility] Last Admin: 12/31/16 08:46 Dose: 1,000 mg - Objective Vital Signs: Vital Signs Temperature 98.5 F 12/31/16 14:39 Pulse Rate 68 12/31/16 14:39 Respiratory Rate 22 12/31/16 14:39 Blood Pressure 141/85 12/31/16 14:39 O2 Sat by Pulse Oximetry (%) 97 12/30/16 21:00 Constitutional: Yes: No Distress, Calm Cardiovascular: Yes: Regular Rate and Rhythm Respiratory: Yes: Regular, CTA Bilaterally Gastrointestinal: Yes: Normal Bowel Sounds, Soft Musculoskeletal: Yes: Other Extremities: Yes: Erythema (better), Other Neurological: Yes: Alert, Oriented Psychiatric: Yes: Alert Labs: CBC, BMP 12/28/16 06:45 12/28/16 06:44 Assessment/Plan Problem List - Problems (1) Cellulitis Code(s): L03.90 - CELLULITIS, UNSPECIFIED (2) GERD (gastroesophageal reflux disease) Code(s): K21.9 - GASTRO-ESOPHAGEAL REFLUX DISEASE WITHOUT ESOPHAGITIS 3 obesity 4 swelling of the rt leg plan elevation of the leg iv abx rest as per primary team improving
--- NOTE | 2016-12-31 17:42 | PN ---
Progress Note, Physician History of Present Illness: feeling good - Current Medication List Current Medications: Active Medications Acetaminophen (Tylenol -) 650 mg PO Q6H PRN PRN Reason: FEVER OR PAIN Atenolol (Tenormin -) 25 mg PO DAILY [facility] Last Admin: 12/31/16 10:34 Dose: 25 mg Heparin Sodium (Porcine) (Heparin -) 5,000 unit SQ BID [facility] Last Admin: 12/31/16 10:34 Dose: 5,000 unit Ampicillin Sodium/Sulbactam (Sodium 3 gm/ Sodium Chloride) 100 mls @ 200 mls/ hr IVPB Q8H-IV [facility] Last Admin: 12/31/16 10:34 Dose: 200 mls/hr Levothyroxine Sodium (Synthroid -) 150 mcg PO ACBK [facility] Last Admin: 12/31/16 06:22 Dose: 150 mcg Metformin HCl (Glucophage Xr -) 1,000 mg PO BIDAC [facility] Last Admin: 12/31/16 08:46 Dose: 1,000 mg - Objective Vital Signs: Vital Signs Temperature 98.5 F 12/31/16 14:39 Pulse Rate 68 12/31/16 14:39 Respiratory Rate 22 12/31/16 14:39 Blood Pressure 141/85 12/31/16 14:39 O2 Sat by Pulse Oximetry (%) 97 12/31/16 09:00 Constitutional: Yes: No Distress HENT: Yes: Atraumatic Neck: Yes: Supple Cardiovascular: Yes: Regular Rate and Rhythm Respiratory: Yes: CTA Bilaterally Gastrointestinal: Yes: Normal Bowel Sounds Extremities: Yes: Other (rlex not warm...redness resolving) Edema: Yes Edema: RLE: 1+ Peripheral Pulses WNL: Yes Neurological: Yes: Alert, Oriented Labs: CBC, BMP 12/28/16 06:45 12/28/16 06:44 Problem List - Problems (1) Cellulitis Assessment/Plan: on iv abx elevate leg id consult Code(s): L03.90 - CELLULITIS, UNSPECIFIED (2) GERD (gastroesophageal reflux disease) Code(s): K21.9 - GASTRO-ESOPHAGEAL REFLUX DISEASE WITHOUT ESOPHAGITIS (3) Hypothyroid Assessment/Plan: on meds stable Code(s): E03.9 - HYPOTHYROIDISM, UNSPECIFIED
[2017-01-01] MEDS: AMPICILLIN NA/SULBACTAM NA 3 GM in SODIUM CHLORIDE 100 ML IVPB SCH ×2 (02:47→10:05)
[2017-01-01] MEDS ORDERED: PT OWN MED DRAWER 7, Y5N ONE ×3 (06:22→16:50)
[2017-01-01] MEDS: LEVOTHYROXINE NA 150 MCG TABLET PO SCH (06:36)
[2017-01-01] MEDS: ATENOLOL 25 MG TABLET (FP) PO SCH (10:06)
[2017-01-01] MEDS: HEPARIN NA (PORCINE) 5,000 UNITS/ML 1ML VIAL SQ SCH ×2 (10:06→21:46)
--- NOTE | 2017-01-01 13:51 | PN ---
Progress Note, Physician History of Present Illness: improving still with erythema - Current Medication List Current Medications: Active Medications Acetaminophen (Tylenol -) 650 mg PO Q6H PRN PRN Reason: FEVER OR PAIN Atenolol (Tenormin -) 25 mg PO DAILY [facility] Last Admin: 01/01/17 10:06 Dose: 25 mg Heparin Sodium (Porcine) (Heparin -) 5,000 unit SQ BID [facility] Last Admin: 01/01/17 10:06 Dose: 5,000 unit Ampicillin Sodium/Sulbactam (Sodium 3 gm/ Sodium Chloride) 100 mls @ 200 mls/ hr IVPB Q8H-IV [facility] Last Admin: 01/01/17 10:05 Dose: 200 mls/hr Levothyroxine Sodium (Synthroid -) 150 mcg PO ACBK [facility] Last Admin: 01/01/17 06:36 Dose: 150 mcg Metformin HCl (Glucophage Xr -) 1,000 mg PO BIDAC [facility] Last Admin: 01/01/17 08:40 Dose: 1,000 mg - Objective Vital Signs: Vital Signs Temperature 99 F 01/01/17 09:16 Pulse Rate 72 01/01/17 09:16 Respiratory Rate 20 01/01/17 09:16 Blood Pressure 142/72 01/01/17 09:16 O2 Sat by Pulse Oximetry (%) 95 01/01/17 09:00 Constitutional: Yes: No Distress, Calm, Obese Cardiovascular: Yes: Regular Rate and Rhythm Respiratory: Yes: Regular, CTA Bilaterally Gastrointestinal: Yes: Normal Bowel Sounds, Soft Musculoskeletal: Yes: Other Extremities: Yes: Erythema (better) Integumentary: Yes: Erythema Neurological: Yes: Alert, Oriented Psychiatric: Yes: Alert, Oriented Labs: CBC, BMP 12/28/16 06:45 12/28/16 06:44 Assessment/Plan Problem List - Problems (1) Cellulitis Code(s): L03.90 - CELLULITIS, UNSPECIFIED (2) GERD (gastroesophageal reflux disease) Code(s): K21.9 - GASTRO-ESOPHAGEAL REFLUX DISEASE WITHOUT ESOPHAGITIS 3 obesity 4 swelling of the rt leg plan elevation of the leg iv abx hopefully by tuesday can switch to oral abx
--- NOTE | 2017-01-01 16:50 | PN ---
Progress Note, Physician History of Present Illness: doing well - Current Medication List Current Medications: Active Medications Acetaminophen (Tylenol -) 650 mg PO Q6H PRN PRN Reason: FEVER OR PAIN Amoxicillin/Clavulanate Potassium (Augmentin - 875mg Tablet) 1 tab PO BID@0800, 1730 [facility] Atenolol (Tenormin -) 25 mg PO DAILY [facility] Last Admin: 01/01/17 10:06 Dose: 25 mg Heparin Sodium (Porcine) (Heparin -) 5,000 unit SQ BID [facility] Last Admin: 01/01/17 10:06 Dose: 5,000 unit Levothyroxine Sodium (Synthroid -) 150 mcg PO ACBK [facility] Last Admin: 01/01/17 06:36 Dose: 150 mcg Metformin HCl (Glucophage Xr -) 1,000 mg PO BIDAC [facility] Last Admin: 01/01/17 08:40 Dose: 1,000 mg - Objective Vital Signs: Vital Signs Temperature 98.9 F 01/01/17 16:09 Pulse Rate 67 01/01/17 16:09 Respiratory Rate 16 01/01/17 16:09 Blood Pressure 131/74 01/01/17 16:09 O2 Sat by Pulse Oximetry (%) 95 01/01/17 09:00 Constitutional: Yes: No Distress HENT: Yes: Atraumatic Neck: Yes: Supple Cardiovascular: Yes: Regular Rate and Rhythm Respiratory: Yes: CTA Bilaterally Gastrointestinal: Yes: Normal Bowel Sounds Extremities: Yes: Other (rlex much improved) Neurological: Yes: Alert, Oriented Labs: CBC, BMP 12/28/16 06:45 12/28/16 06:44 Problem List - Problems (1) Cellulitis Assessment/Plan: will switch to po elevate leg id consult Code(s): L03.90 - CELLULITIS, UNSPECIFIED (2) GERD (gastroesophageal reflux disease) Code(s): K21.9 - GASTRO-ESOPHAGEAL REFLUX DISEASE WITHOUT ESOPHAGITIS (3) Hypothyroid Assessment/Plan: on meds stable Code(s): E03.9 - HYPOTHYROIDISM, UNSPECIFIED Assessment/Plan
[2017-01-01] MEDS: AMOX TR/POT CLAV 875MG/125MG TABLETS (FP) PO SCH (17:18)
[2017-01-01 17:26] LABS: BASOPHIL 0.4 % (0-2.0); EOSINOPHIL 5.6 % (0-4.5); MCH 28.3 pg (25.7-33.7); MCHC 33.4 g/dl (32.0-36.0); MEAN CELL VOLUME 84.6 fl (80-96); MEAN PLT VOLUME 8.6 fl (7.5-11.1); NEUTROPHILS 58.9 % (42.8-82.8); PLATELET COUNT 218 K/MM3 (134-434); RDW 13.8 % (11.6-15.6); WHITE BLOOD COUNT 5.9 K/mm3 (4.0-10.0)
[2017-01-01 17:46] LABS: ALBUMIN 3.7 g/dl (3.4-5.0); ANION GAP 8 (8-16); BILIRUBIN,TOTAL 0.3 mg/dL (0.2-1.0); CALCIUM 9.2 mg/dL (8.5-10.1); CO2 30 mmol/L (21-32); CREATININE 0.7 mg/dL (0.55-1.02); GLUCOSE,RANDOM 86 mg/dL (74-106); SGOT/AST 40 U/L (15-37); SGPT/ALT 45 U/L (12-78); TOT PROT 7.6 g/dl (6.4-8.2)
[2017-01-01 17:47] LABS: ALK PHOS 62 U/L (45-117)
[2017-01-02] MEDS ORDERED: PT OWN MED DRAWER 7, Y5N ONE ×2 (06:02→17:48)
[2017-01-02] MEDS: LEVOTHYROXINE NA 150 MCG TABLET PO SCH (06:34)
[2017-01-02] MEDS: AMOX TR/POT CLAV 875MG/125MG TABLETS (FP) PO SCH ×2 (08:35→17:58)
[2017-01-02] MEDS: ATENOLOL 25 MG TABLET (FP) PO SCH (10:56)
[2017-01-02] MEDS: HEPARIN NA (PORCINE) 5,000 UNITS/ML 1ML VIAL SQ SCH (10:56)
--- NOTE | 2017-01-02 14:05 | PN ---
Progress Note, Physician History of Present Illness: cellulitits nearly resolved patient c/o of blood in urine has been changed to oral abx patient not feeling too well - Current Medication List Current Medications: Active Medications Acetaminophen (Tylenol -) 650 mg PO Q6H PRN PRN Reason: FEVER OR PAIN Amoxicillin/Clavulanate Potassium (Augmentin - 875mg Tablet) 1 tab PO BID@0800, 1730 [facility] Last Admin: 01/02/17 08:35 Dose: 1 tab Atenolol (Tenormin -) 25 mg PO DAILY [facility] Last Admin: 01/02/17 10:56 Dose: 25 mg Heparin Sodium (Porcine) (Heparin -) 5,000 unit SQ BID [facility] Last Admin: 01/02/17 10:56 Dose: 5,000 unit Levothyroxine Sodium (Synthroid -) 150 mcg PO ACBK [facility] Last Admin: 01/02/17 06:34 Dose: 150 mcg Metformin HCl (Glucophage Xr -) 1,000 mg PO BIDAC [facility] Last Admin: 01/02/17 06:34 Dose: 1,000 mg - Objective Vital Signs: Vital Signs Temperature 97.6 F 01/02/17 10:00 Pulse Rate 68 01/02/17 10:00 Respiratory Rate 18 01/02/17 10:00 Blood Pressure 132/77 01/02/17 10:00 O2 Sat by Pulse Oximetry (%) 95 01/01/17 20:42 Constitutional: Yes: No Distress, Calm, Obese Cardiovascular: Yes: Regular Rate and Rhythm Respiratory: Yes: Regular, CTA Bilaterally Gastrointestinal: Yes: Normal Bowel Sounds, Soft Musculoskeletal: Yes: WNL Extremities: Yes: WNL Neurological: Yes: Alert, Oriented Psychiatric: Yes: Alert, Oriented Labs: CBC, BMP 01/01/17 17:05 01/01/17 17:05 Assessment/Plan Problem List - Problems (1) Cellulitis Code(s): L03.90 - CELLULITIS, UNSPECIFIED (2) GERD (gastroesophageal reflux disease) Code(s): K21.9 - GASTRO-ESOPHAGEAL REFLUX DISEASE WITHOUT ESOPHAGITIS 3 obesity 4 swelling of the rt leg plan continue oral abx evaluation of blood in urine
[2017-01-02 16:51] LABS: URINE APPEARANCE CLEAR; URINE BILIRUBIN NEGATIVE (NEGATIVE); URINE BLOOD 3+ (NEGATIVE); URINE COLOR LTYELLOW; URINE GLUCOSE (UA) NEGATIVE (NEGATIVE); URINE KETONE NEGATIVE (NEGATIVE); URINE NITRITE NEGATIVE (NEGATIVE); URINE UROBILINOGEN NEGATIVE mg/dL (0.2-1.0)
[2017-01-02 16:52] LABS: URINE PROTEIN 1+ (NEGATIVE)
[2017-01-02 17:02] LABS: CALCIUM OXALATE CRYSTALS FEW /hpf (NONE SEEN); URINE BACTERIA MODERATE /hpf (NONE SEEN); URINE HYALINE CAST 1 /lpf; URINE MUCUS RARE; URINE RBC 145 /hpf (0-3); URINE WBC 22 /hpf (3-5)
[2017-01-02 18:56] LABS: URINE LEUK ESTERASE TRACE (NEGATIVE)
--- NOTE | 2017-01-02 19:24 | PN ---
Progress Note, Physician History of Present Illness: had blood in urine - Current Medication List Current Medications: Active Medications Acetaminophen (Tylenol -) 650 mg PO Q6H PRN PRN Reason: FEVER OR PAIN Amoxicillin/Clavulanate Potassium (Augmentin - 875mg Tablet) 1 tab PO BID@0800, 1730 [facility] Last Admin: 01/02/17 17:58 Dose: 1 tab Atenolol (Tenormin -) 25 mg PO DAILY [facility] Last Admin: 01/02/17 10:56 Dose: 25 mg Heparin Sodium (Porcine) (Heparin -) 5,000 unit SQ BID [facility] Last Admin: 01/02/17 10:56 Dose: 5,000 unit Levothyroxine Sodium (Synthroid -) 150 mcg PO ACBK [facility] Last Admin: 01/02/17 06:34 Dose: 150 mcg Metformin HCl (Glucophage Xr -) 1,000 mg PO BIDAC [facility] Last Admin: 01/02/17 17:58 Dose: 1,000 mg - Objective Vital Signs: Vital Signs Temperature 98.1 F 01/02/17 19:10 Pulse Rate 67 01/02/17 19:10 Respiratory Rate 18 01/02/17 19:10 Blood Pressure 135/63 01/02/17 19:10 O2 Sat by Pulse Oximetry (%) 95 01/02/17 09:00 Constitutional: Yes: No Distress HENT: Yes: Atraumatic Neck: Yes: Supple Cardiovascular: Yes: Regular Rate and Rhythm Respiratory: Yes: CTA Bilaterally Extremities: Yes: WNL Edema: No Neurological: Yes: Alert, Oriented Labs: CBC, BMP 01/01/17 17:05 01/01/17 17:05 Problem List - Problems (1) Cellulitis Assessment/Plan: on po abx id consult...reviewed Code(s): L03.90 - CELLULITIS, UNSPECIFIED (2) GERD (gastroesophageal reflux disease) Assessment/Plan: stable Code(s): K21.9 - GASTRO-ESOPHAGEAL REFLUX DISEASE WITHOUT ESOPHAGITIS (3) Hypothyroid Assessment/Plan: on meds stable Code(s): E03.9 - HYPOTHYROIDISM, UNSPECIFIED (4) Diabetes Assessment/Plan: on metformin check bgms Code(s): E11.9 - TYPE 2 DIABETES MELLITUS WITHOUT COMPLICATIONS (5) UTI (urinary tract infection) Assessment/Plan: on abx already will send cxs Code(s): N39.0 - URINARY TRACT INFECTION, SITE NOT SPECIFIED Assessment/Plan pt had cranberr colored urine today few times, she stated this has been going on since this summer on and off. she has dr de as urologist for kidnety stones but she never discussed thi issue with him she is NOT IN RENAL [facility] ucx will call dr santino [place] heparin
[2017-01-03] MEDS ORDERED: PT OWN MED DRAWER 7, Y5N ONE ×2 (06:01→17:26)
[2017-01-03] MEDS: LEVOTHYROXINE NA 150 MCG TABLET PO SCH (06:20)
[2017-01-03 08:07] LABS: MCHC 33.1 g/dl (32.0-36.0); MEAN CELL VOLUME 84.7 fl (80-96); MEAN PLT VOLUME 8.5 fl (7.5-11.1); PLATELET COUNT 238 K/MM3 (134-434); WHITE BLOOD COUNT 5.9 K/mm3 (4.0-10.0)
[2017-01-03] MEDS: AMOX TR/POT CLAV 875MG/125MG TABLETS (FP) PO SCH ×2 (08:36→17:27)
[2017-01-03 09:03] LABS: ALBUMIN 3.7 g/dl (3.4-5.0); ALK PHOS 58 U/L (45-117); ANION GAP 7 (8-16); BILIRUBIN,TOTAL 0.5 mg/dL (0.2-1.0); CALCIUM 9.4 mg/dL (8.5-10.1); CO2 29 mmol/L (21-32); CREATININE 0.7 mg/dL (0.55-1.02); GLUCOSE,RANDOM 92 mg/dL (74-106); SGOT/AST 39 U/L (15-37); SGPT/ALT 47 U/L (12-78); TOT PROT 7.2 g/dl (6.4-8.2)
[2017-01-03 09:17] LABS: PLATELET ESTIMATE ADEQUATE (NORMAL); TOTAL CELLS COUNTED 100
[2017-01-03] MEDS: ATENOLOL 25 MG TABLET (FP) PO SCH (10:49)
--- NOTE | 2017-01-03 15:26 | PN ---
Progress Note, Physician History of Present Illness: feeling good - Current Medication List Current Medications: Active Medications Acetaminophen (Tylenol -) 650 mg PO Q6H PRN PRN Reason: FEVER OR PAIN Amoxicillin/Clavulanate Potassium (Augmentin - 875mg Tablet) 1 tab PO BID@0800, 1730 [facility] Last Admin: 01/03/17 08:36 Dose: 1 tab Atenolol (Tenormin -) 25 mg PO DAILY [facility] Last Admin: 01/03/17 10:49 Dose: 25 mg Levothyroxine Sodium (Synthroid -) 150 mcg PO ACBK [facility] Last Admin: 01/03/17 06:20 Dose: 150 mcg Metformin HCl (Glucophage Xr -) 1,000 mg PO BIDAC [facility] Last Admin: 01/03/17 06:20 Dose: 1,000 mg - Objective Vital Signs: Vital Signs Temperature 98.0 F 01/03/17 14:20 Pulse Rate 69 01/03/17 14:20 Respiratory Rate 18 01/03/17 08:36 Blood Pressure 127/67 01/03/17 14:20 O2 Sat by Pulse Oximetry (%) 95 01/02/17 20:12 Constitutional: Yes: No Distress HENT: Yes: Atraumatic Neck: Yes: Supple Cardiovascular: Yes: Regular Rate and Rhythm Respiratory: Yes: CTA Bilaterally Gastrointestinal: Yes: Normal Bowel Sounds Extremities: Yes: Other (rlex cellulitis resolving) Edema: RLE: 1+ Neurological: Yes: Alert, Oriented Labs: CBC, BMP 01/03/17 06:50 01/03/17 06:50 Problem List - Problems (1) Cellulitis Assessment/Plan: on po abx id consult...reviewed Code(s): L03.90 - CELLULITIS, UNSPECIFIED (2) GERD (gastroesophageal reflux disease) Assessment/Plan: stable Code(s): K21.9 - GASTRO-ESOPHAGEAL REFLUX DISEASE WITHOUT ESOPHAGITIS (3) Hypothyroid Assessment/Plan: on meds stable Code(s): E03.9 - HYPOTHYROIDISM, UNSPECIFIED (4) Diabetes Assessment/Plan: on metformin check bgms Code(s): E11.9 - TYPE 2 DIABETES MELLITUS WITHOUT COMPLICATIONS (5) UTI (urinary tract infection) Assessment/Plan: on abx cxs pending awaiting urology consult Code(s): N39.0 - URINARY TRACT INFECTION, SITE NOT SPECIFIED
--- NOTE | 2017-01-03 16:06 | CON.GU ---
Consult - History of Present Illness History of Present Illness: 61 yo female with prior h/o nephrolithiasis, last seen by me several years ago. Now admitted for cellulitis LE. Noted to have gross hematuria during admission, which she has been experiencing intermittantly over the past few months. No dysuria, no flank pain - Past Medical History Gastrointestinal: Yes: GERD ...LMP: 01/06/07 Endocrine: Yes: Diabetes Mellitus, Other (hashimotos) - Alcohol/Substance Use Hx Alcohol Use: No - Smoking History Smoking history: Never smoked Have you smoked in the past 12 months: No Home Medications - Allergies Allergies/Adverse Reactions: Allergies Allergy/AdvReac Type Severity Reaction Status Date / Time bacitracin Allergy Verified 12/27/16 12:45 lactose AdvReac Verified 12/27/16 12:51 - Home Medications Home Medications: Ambulatory Orders Atenolol [Tenormin -] 25 mg PO DAILY 12/27/16 Famotidine [Pepcid -] 40 mg PO DAILY 12/27/16 Levothyroxine [Synthroid -] 150 mcg PO DAILY 12/27/16 Metformin HCl [Metformin HCl ER] 1,000 mg PO BID 12/27/16 Amox-Tr/K Cl [Augmentin 875-125mg Tablet -] 1 tab PO BID@0800,1730 #14 tablet Physical Exam- Vital Signs: Vital Signs Temperature 98.0 F 01/03/17 14:20 Pulse Rate 69 01/03/17 14:20 Respiratory Rate 18 01/03/17 08:36 Blood Pressure 127/67 01/03/17 14:20 O2 Sat by Pulse Oximetry (%) 95 01/02/17 20:12 Gastrointestinal: Yes: Soft Renal/: Yes: Hematuria Labs: CBC, BMP 01/03/17 06:50 01/03/17 06:50 Problem List - Problems (1) Gross hematuria Assessment/Plan: in light of prior stone history, CT ordered Code(s): R31.0 - GROSS HEMATURIA
--- NOTE | 2017-01-03 19:32 | PN ---
Progress Note, Physician History of Present Illness: doing much better no issues leg looks much better still hematuria - Current Medication List Current Medications: Active Medications Acetaminophen (Tylenol -) 650 mg PO Q6H PRN PRN Reason: FEVER OR PAIN Amoxicillin/Clavulanate Potassium (Augmentin - 875mg Tablet) 1 tab PO BID@0800, 1730 [facility] Last Admin: 01/03/17 17:27 Dose: 1 tab Atenolol (Tenormin -) 25 mg PO DAILY [facility] Last Admin: 01/03/17 10:49 Dose: 25 mg Levothyroxine Sodium (Synthroid -) 150 mcg PO ACBK [facility] Last Admin: 01/03/17 06:20 Dose: 150 mcg Metformin HCl (Glucophage Xr -) 1,000 mg PO BIDAC [facility] Last Admin: 01/03/17 17:27 Dose: 1,000 mg - Objective Vital Signs: Vital Signs Temperature 97.0 F L 01/03/17 18:05 Pulse Rate 65 01/03/17 18:05 Respiratory Rate 20 01/03/17 18:05 Blood Pressure 135/68 01/03/17 18:05 O2 Sat by Pulse Oximetry (%) 95 01/03/17 09:00 Constitutional: Yes: No Distress, Calm, Obese Cardiovascular: Yes: Regular Rate and Rhythm Respiratory: Yes: Regular, CTA Bilaterally Gastrointestinal: Yes: Normal Bowel Sounds, Soft Musculoskeletal: Yes: WNL Extremities: Yes: WNL Neurological: Yes: Alert, Oriented Psychiatric: Yes: Alert, Oriented Labs: CBC, BMP 01/03/17 06:50 01/03/17 06:50 Assessment/Plan Problem List - Problems (1) Cellulitis Code(s): L03.90 - CELLULITIS, UNSPECIFIED (2) GERD (gastroesophageal reflux disease) Code(s): K21.9 - GASTRO-ESOPHAGEAL REFLUX DISEASE WITHOUT ESOPHAGITIS 3 obesity 4 swelling of the rt leg hematuria plan continue oral abx urology note noted
[2017-01-04 06:34] VITALS: TEMP 97
[2017-01-04] MEDS: LEVOTHYROXINE NA 150 MCG TABLET PO SCH (06:52)
--- NOTE | 2017-01-04 08:42 | PN ---
Progress Note (short form) - Note Progress Note: CT shows 7mm left rnal pelvic stone with mild hydronephrosis, no other abnormalities Stone is the likely source of the hematuria will plan for lithotripsy electively once medically cleared outpt followup next week Problem List - Problems (1) Gross hematuria Code(s): R31.0 - GROSS HEMATURIA
[2017-01-04 09:08] VITALS: BP 140/76; PULSE 80
[2017-01-04] MEDS: AMOX TR/POT CLAV 875MG/125MG TABLETS (FP) PO SCH (09:10)
[2017-01-04] MEDS: ATENOLOL 25 MG TABLET (FP) PO SCH (09:10)
--- NOTE | 2017-01-04 11:39 | DS ---
Physical Examination Vital Signs: Vital Signs Temperature 97 F L 01/04/17 06:33 Pulse Rate 80 01/04/17 09:07 Respiratory Rate 18 01/04/17 09:07 Blood Pressure 140/76 01/04/17 09:07 O2 Sat by Pulse Oximetry (%) 95 01/04/17 09:00 Constitutional: Yes: No Distress HENT: Yes: Atraumatic Neck: Yes: Supple Cardiovascular: Yes: Regular Rate and Rhythm Respiratory: Yes: CTA Bilaterally Gastrointestinal: Yes: Normal Bowel Sounds Extremities: Yes: Other (llex cellulitis much improved) Neurological: Yes: Alert, Oriented Labs: CBC, BMP 01/03/17 06:50 01/03/17 06:50 Discharge Summary Reason For Visit: CELLULITIS Current Active Problems Cellulitis (Acute) Diabetes (Acute) GERD (gastroesophageal reflux disease) (Acute) Gross hematuria (Acute) Hypothyroid (Acute) UTI (urinary tract infection) (Acute) Condition: Improved - Instructions Diet, Activity, Other Instructions: F/U WITH UROLOGY NEXT WEEK Referrals: Reuben Carvajal MD [Primary Care Provider] - Asael Tejeda MD [Staff Physician] - Disposition: HOME - Home Medications Comprehensive Discharge Medication List: Ambulatory Orders Atenolol [Tenormin -] 25 mg PO DAILY 12/27/16 Famotidine [Pepcid -] 40 mg PO DAILY 12/27/16 Levothyroxine [Synthroid -] 150 mcg PO DAILY 12/27/16 Metformin HCl [Metformin HCl ER] 1,000 mg PO BID 12/27/16 Amox-Tr/K Cl [Augmentin 875-125mg Tablet -] 1 tab PO BID@0800,1730 #14 tablet dc home fu pmd 1 week
== END 2017-01-04 11:59 | disposition home or self-care (01) | DRG 603 ==
LOC: JER 12:33 → JERBED 17:45 → OBSVTOIN 19:44 → J5S 20:00
PROVIDERS: ADMIT Internal Medicine; ATTEND Internal Medicine
DX: L03.115 Cellulitis of right lower limb (principal); N13.2 Hydronephrosis with renal and ureteral calculous obstruction; E11.9 Type 2 diabetes mellitus without complications; K21.9 Gastro-esophageal reflux disease without esophagitis; E06.3 Autoimmune thyroiditis; Z79.84 Long term (current) use of oral hypoglycemic drugs; E66.9 Obesity, unspecified; Z68.35 Body mass index [BMI] 35.0-35.9, adult; R31.0 Gross hematuria
CPT/HCPCS: 36415; 71020-TC; 73590-TC-RT; 74178-TC; 80053; 81003; 81015; 83605; 85025; 86140; 87086; 93005; 93010; 93970-TC; 99284-25; G0378; J1644

== ENCOUNTER 2021-09-07 05:02 | Day surgery (SDC) | payer OTHER ==
[2021-09-02 10:52] VITALS: BMI 35.5
[2021-09-07 08:43] VITALS: TEMP 97
[2021-09-07 09:10] VITALS: BP 120/54; PULSE 67
== END 2021-09-07 09:30 | disposition home or self-care (01) ==
LOC: JASU-ENDO 05:02
PROVIDERS: ATTEND Internal Medicine Gastroenterology
PROC: 0DBN8ZX Excision of Sigmoid Colon, Via Natural or Artificial Opening Endoscopic, Diagnostic (ICD-10-PCS; principal; 2021-09-07 08:00)
DX: Z12.11 Encounter for screening for malignant neoplasm of colon (principal); D12.5 Benign neoplasm of sigmoid colon; K64.8 Other hemorrhoids; K57.30 Diverticulosis of large intestine without perforation or abscess without bleeding; Z83.71 Family history of colonic polyps; E11.9 Type 2 diabetes mellitus without complications
CPT/HCPCS: 88305-TC